=== PATIENT | female | born 1960 | race African-American/Black ===

== ENCOUNTER 2018-02-19 15:54 | Emergency (ER) | payer MEDICARE, MEDICAID ==
[~2018-02-19] VITALS: Ht 149.9 cm; Wt 77.1 kg
[~2018-02-19 15:54] MED LIST: ALBU2.5V14 NEB; ALBU8.5H6 IH; AMLO2.5T2 PO; ASPI-482 PO; BUDE10.2 IH; HYDR12.53 PO; LEVO75TA PO; LORA10CA PO; MELO7.5T29 PO; METO-239 PO; RANI300C PO
--- NOTE | 2018-02-19 16:16 | EKG ---
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
[2018-02-19 16:29] LABS: BASO % 0 % (0-3); EOS # 1.1 x10^3/uL (0.0-0.7); EOS % 13 % (0-3); HEMATOCRIT 37.9 % (36.0-47.0); HEMOGLOBIN 13.2 g/dL (12.0-15.5); LYMPH # 0.9 x10^3/uL (1.0-4.8); LYMPH % 11 % (24-48); MEAN CORPUSCULAR HEMOGLOBIN 31 pg (25-35); MEAN CORPUSCULAR HGB CONC 35 g/dL (31-37); MEAN CORPUSCULAR VOLUME 89 fL (79-100); MONO # 0.5 x10^3/uL (0.0-1.1); MONO % 6 % (0-9); NEUT # 5.9 x10^3uL (1.8-7.7); NEUT % 70 % (31-73); PLATELET COUNT 330 x10^3/uL (140-400); RED BLOOD COUNT 4.26 x10^6/uL (3.50-5.40); RED CELL DISTRIBUTION WIDTH 12.9 % (11.5-14.5); WHITE BLOOD COUNT 8.3 x10^3/uL (4.0-11.0)
[2018-02-19] MEDS ORDERED: CYCL5TAB PO (16:35)
[2018-02-19 16:39] LABS: CALCIUM 9.4 mg/dL (8.5-10.1); CREATININE 0.7 mg/dL (0.6-1.0); GFR 105.1; POTASSIUM 3.5 mmol/L (3.5-5.1)
[2018-02-19] MEDS ORDERED: FAMO-63 PO (16:40)
[2018-02-19] MEDS ORDERED: DIPH25CA58 PO (16:40)
--- NOTE | 2018-02-19 16:41 | PHYS DOC ---
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 Patient states that the chest pressure is intermittent. Patient rates her overall pain a 6 out of 10. Review of Systems Review of Systems Constitutional: Denies fever or chills [] Eyes: Denies change in visual acuity, redness, or eye pain [] HENT: Denies nasal congestion or sore throat [] Respiratory: Denies cough or shortness of breath [] Cardiovascular: Chest pressure GI: Denies abdominal pain, nausea, vomiting, bloody stools or diarrhea [] : Denies dysuria or hematuria [] Musculoskeletal: Denies back pain or joint pain [] Integument: Hives all over body except for face. Denies skin lesions [] Neurologic: Denies headache, focal weakness or sensory changes [] Endocrine: Denies polyuria or polydipsia [] All other systems were reviewed and found to be within normal limits, except as documented in this note. Current Medications Current Medications Current Medications Medications (Trade) Dose Ordered Sig/Alex Start Time Stop Time Status Last Admin Dose Admin Albuterol/ Ipratropium (Duoneb) 3 ml 1X ONCE 02/19/18 18:15 02/19/18 18:16 DC 02/19/18 18:10 3 ML Diphenhydramine HCl (Benadryl) 25 mg 1X ONCE 02/19/18 16:45 02/19/18 16:46 DC 02/19/18 16:54 25 MG Famotidine (Pepcid Vial) 20 mg 1X ONCE 02/19/18 16:45 02/19/18 16:46 DC 02/19/18 16:55 20 MG Prednisone (Prednisone) 50 mg 1X ONCE 02/19/18 16:45 02/19/18 16:45 DC Allergies Allergies Allergies Coded Allergies Type Severity Reaction Last Updated Verified prednisolone Allergy Mild RASH 09/13/13 Yes Physical Exam Physical Exam Constitutional: Well developed, well nourished, no acute distress, non-toxic appearance. [] HENT: Normocephalic, atraumatic, bilateral external ears normal, oropharynx moist, no oral exudates, nose normal. [] Eyes: PERRLA, EOMI, conjunctiva normal, no discharge. [] Neck: Normal range of motion, no tenderness, supple, no stridor. [] Cardiovascular:Left chest pain with palpation. Heart rate regular rhythm, no murmur [] Lungs & Thorax: Bilateral breath sounds clear to auscultation [] Abdomen: Bowel sounds normal, soft, no tenderness, no masses, no pulsatile masses. [] Skin: Warm, dry, erythema and hives all over body except for face. [] Back: No tenderness, no CVA tenderness. [] Extremities: No tenderness, no cyanosis, no clubbing, ROM intact, no edema. [] Neurologic: Alert and oriented X 3, normal motor function, normal sensory function, no focal deficits noted. [] Psychologic: Affect normal, judgement normal, mood normal. [] Current Patient Data Vital Signs Vital Signs Date Time Temp Pulse Resp B/P (MAP) Pulse Ox O2 Delivery O2 Flow Rate FiO2 02/19/18 18:12 99 Room Air 02/19/18 16:22 97.7 88 16 142/64 (90) 97.7 Lab Values Laboratory Tests Test 02/19/18 16:15 02/19/18 17:00 White Blood Count 8.3 x10^3/uL (4.0-11.0) Red Blood Count 4.26 x10^6/uL (3.50-5.40) Hemoglobin 13.2 g/dL (12.0-15.5) Hematocrit 37.9 % (36.0-47.0) Mean Corpuscular Volume 89 fL (79-100) Mean Corpuscular Hemoglobin 31 pg (25-35) Mean Corpuscular Hemoglobin Concent 35 g/dL (31-37) Red Cell Distribution Width 12.9 % (11.5-14.5) Platelet Count 330 x10^3/uL (140-400) Neutrophils (%) (Auto) 70 % (31-73) Lymphocytes (%) (Auto) 11 % (24-48) L Monocytes (%) (Auto) 6 % (0-9) Eosinophils (%) (Auto) 13 % (0-3) H Basophils (%) (Auto) 0 % (0-3) Neutrophils # (Auto) 5.9 x10^3uL (1.8-7.7) Lymphocytes # (Auto) 0.9 x10^3/uL (1.0-4.8) L Monocytes # (Auto) 0.5 x10^3/uL (0.0-1.1) Eosinophils # (Auto) 1.1 x10^3/uL (0.0-0.7) H Basophils # (Auto) 0.0 x10^3/uL (0.0-0.2) Sodium Level 138 mmol/L (136-145) Potassium Level 3.5 mmol/L (3.5-5.1) Chloride Level 101 mmol/L (98-107) Carbon Dioxide Level 26 mmol/L (21-32) Anion Gap 11 (6-14) Blood Urea Nitrogen 18 mg/dL (7-20) Creatinine 0.7 mg/dL (0.6-1.0) Estimated GFR (Cockcroft-Gault) 105.1 Glucose Level 99 mg/dL (70-99) Calcium Level 9.4 mg/dL (8.5-10.1) Troponin I Quantitative < 0.017 ng/mL (0.000-0.055) Urine Collection Type Unknown Urine Color Yellow Urine Clarity Cloudy Urine pH 6.5 Urine Specific [place] 1.010 Urine Protein Negative mg/dL (NEG-TRACE) Urine Glucose (UA) Negative mg/dL (NEG) Urine Ketones (Stick) Negative mg/dL (NEG) Urine Blood Trace (NEG) Urine Nitrite Negative (NEG) Urine Bilirubin Negative (NEG) Urine Urobilinogen Dipstick 0.2 mg/dL (0.2 mg/dL) Urine Leukocyte Esterase Negative (NEG) Urine RBC 11-20 /HPF (0-2) Urine WBC 0 /HPF (0-4) Urine Squamous Epithelial Cells Few /LPF Urine Bacteria 0 /HPF (0-FEW) Urine Mucus Slight /LPF Urine Opiates Screen Neg (NEG) Urine Methadone Screen Neg (NEG) Urine Barbiturates Neg (NEG) Urine Phencyclidine Screen Neg (NEG) Urine Amphetamine/Methamphetamine Neg (NEG) Urine Benzodiazepines Screen Neg (NEG) Urine Cocaine Screen Neg (NEG) Urine Cannabinoids Screen Neg (NEG) Urine Ethyl Alcohol Neg (NEG) Laboratory Tests 02/19/18 16:15 Laboratory Tests 02/19/18 16:15 EKG EKG Sinus tach, no STEMI and read by Dr. Farfan Interpretation Time: 1602 Radiology/Procedures Radiology/Procedures Chest xray Impressions: [facility] [address] [place] [address] IMAGING REPORT Signed PATIENT: MEGAN HILTON ACCOUNT: [id number] : 1960 LOCATION: ER AGE: 57 SEX: F EXAM STATUS: REG ER ORD. PHYSICIAN: YULIANA KENT APRN REASON: CHEST PRESSURE PROCEDURE: CHEST PA & LATERAL Chest radiograph 02/19/2018 4:56 PM INDICATION: Chest pressure and pain COMPARISON: September 17, 2015 TECHNIQUE: Frontal and lateral views of the chest are provided. FINDINGS: The cardiomediastinal silhouette is within normal limits. There are no pleural effusions. There is no pulmonary vascular congestion. There is no pneumothorax. The lungs are clear. No significant osseous abnormality is identified. IMPRESSION: No acute cardiopulmonary process. Electronically signed by: Salvador Romero MD (02/19/2018 5:12 PM) [facility] DICTATED and SIGNED BY: SALVADOR ROMERO MD DATE: 02/19/18 [id number] Course & Med Decision Making Course & Med Decision Making Patient is a 57 year old female who presents with getting steroid injections on Wednesday in her upper back and lower back for stenosis and last night began having redness and itching all over her body and states that she felt like her heart was beating fast and she has some chest pressure last night on the left side. Patient states that the chest pressure is intermittent. Patient rates her overall pain a 6 out of 10. Patient is alert and oriented. Patient's lungs are clear to auscultation all lobes. Patient speaks in full sentences and is not in any respiratory distress. Patient has red blotches all over her body except for her face and she states that she is very itchy. Patient states she does not feel like her throat is itching or swelling. Patient states that she does not have any itching of her tongue or swelling. When I evaluate the patient's mental she has no hives in her mouth or tongue is not swollen nor is her throat. Heart rate is regular and without murmur. Patient has no extremity edema or facial edema. Patient states she has no known drug allergies except now she is allergic to prednisone. Patient states that last time she had steroid injections was in 2014 and she had this same exact reaction. Patient states she had a go to the emergency room and get IV Benadryl and another medication of which she cannot remember. She denies any nausea or vomiting. Patient denies any headache or out of the usual numbness or tingling. Patient is stable and in no distress. Left chest pain with palpation. Patient will receive Pepcid IV and Benadryl IV in the ED. Patient will be sent home with scheduled Pepcid and did take Benadryl every 4-6 hours needed. EKG is sinus tachycardia at 102 and there is no STEMI and was read by Dr. Farfan. Chest x- ray showed no acute findings. Blood work is unremarkable. Patient states that she has a history of asthma for which she tried to tell us about and is supposed to be using albuterol when necessary. Patient states that she is feeling slightly short of air and was like a breathing treatment. Lungs are still clear to auscultation all lobes. Patient speaks in full sentences and is in no respiratory distress. Patient states after breathing treatment she is feeling better. Patient is discharged home in stable condition. [] Dragon Disclaimer Dragon Disclaimer This electronic medical record was generated, in whole or in part, using a voice recognition dictation system. Departure Departure Impression: Primary Impression: Hives Disposition: HOME, SELF-CARE Condition: STABLE Referrals: NON,STAFF (PCP) Patient Instructions: Hives Additional Instructions: Follow up with your primary care as soon as possible. If you begin having trouble breathing or wheezing or hive begin to form in your mouth come to the ED. Scripts Epinephrine (EPIPEN 2-ERLINDA) 0.3 Mg/0.3 Ml Auto.injct 0.3 MG IJ PRN PRN for ANAPHYLAXIS, #1 SYR Prov: YULIANA KENT RINKMAN 02/19/18 Diphenhydramine Hcl (BENADRYL) 25 Mg Capsule 25 MG PO Q4-6HRS PRN for ITCHING for 5 Days, CAP Prov: YULIANA KENT APRN 02/19/18 Famotidine (PEPCID) 20 Mg Tablet 20 MG PO BID for 5 Days, #10 TAB Prov: YULIANA KENT APRN 02/19/18 YULIANA KNET APRN Feb 19, 2018 16:41
[2018-02-19] MEDS ORDERED: FAMOTIDINE 20 MG/2 ML VIAL IVP ONE (16:45)
[2018-02-19] MEDS ORDERED: predniSONE 10 MG TABLET PO ONE (16:45)
[2018-02-19] MEDS ORDERED: diphenhydrAMINE 50 MG/ML VIAL IVP ONE (16:45)
[2018-02-19 17:11] LABS: BILIRUBIN,URINE NEGATIVE (NEG); CLARITY,URINE CLOUDY; COLOR,URINE YELLOW; NITRITE,URINE NEGATIVE (NEG); PH,URINE 6.5; PROTEIN,URINE NEGATIVE (NEG-TRACE); UROBILINOGEN,URINE 0.2 mg/dL (0.2 mg/dL)
--- NOTE | 2018-02-19 17:15 | RAD ---
Chest radiograph 02/19/2018 4:56 PM INDICATION: Chest pressure and pain COMPARISON: September 17, 2015 TECHNIQUE: Frontal and lateral views of the chest are provided. FINDINGS: The cardiomediastinal silhouette is within normal limits. There are no pleural effusions. There is no pulmonary vascular congestion. There is no pneumothorax. The lungs are clear. No significant osseous abnormality is identified. IMPRESSION: No acute cardiopulmonary process. Electronically signed by: Alysia Reese MD (02/19/2018 5:12 PM) [facility]
[2018-02-19 17:18] LABS: BARBITURATES NEG (NEG); BENZODIAZEPINES NEG (NEG); CANNABINOIDS NEG (NEG); COCAINE NEG (NEG); METHADONE NEG (NEG); OPIATES NEG (NEG); PHENCYCLIDINE NEG (NEG)
[2018-02-19 17:34] LABS: BACTERIA,URINE 0 /HPF (0-FEW); SQUAMOUS EPITHELIAL CELL,UR FEW /LPF; WBC,URINE 0 /HPF (0-4)
[2018-02-19 17:35] LABS: AMPHETAMINE/METHAMPHETAMINE NEG (NEG)
[2018-02-19] MEDS ORDERED: EPIPEN 2-P0.3 MG/0.3 IJ (17:58)
[2018-02-19] MEDS ORDERED: IPRATRPIUM/ALBUTEROL 0.5/2.5MG 3 ML NEBU. NEB ONE (18:15)
[2018-02-19 18:30] VITALS: BP 144/64
== END 2018-02-19 18:33 | disposition home or self-care (01) ==
LOC: ER 15:54
DX: L50.9 Urticaria, unspecified (principal); M54.5 Low back pain; M54.6 Pain in thoracic spine; I10 Essential (primary) hypertension; E03.9 Hypothyroidism, unspecified; R07.89 Other chest pain; Z88.5 Allergy status to narcotic agent
CPT/HCPCS: 36415; 71046; 80048; 80307; 81001; 84484; 85025; 93005; 94640; 96374; 96375; 99285; J1200; J7620; S0028; G0479

== ENCOUNTER → 2018-06-28 | Outpatient (CLI) | payer MEDICARE, MEDICAID ==
[~2018-06-28] MED LIST changes: +CYCL5TAB PO; +DIPH25CA58 PO; +EPIPEN 2-P0.3 MG/0.3 IJ; +FAMO-63 PO; -HYDR12.53 PO; +HYDR12.575 PO
[2018-06-28 11:15] LABS: BASO % 1 % (0-3); EOS # 0.5 x10^3/uL (0.0-0.7); EOS % 11 % (0-3); HEMATOCRIT 37.3 % (36.0-47.0); HEMOGLOBIN 12.2 g/dL (12.0-15.5); LYMPH # 1.5 x10^3/uL (1.0-4.8); LYMPH % 34 % (24-48); MEAN CORPUSCULAR HEMOGLOBIN 29 pg (25-35); MEAN CORPUSCULAR HGB CONC 33 g/dL (31-37); MEAN CORPUSCULAR VOLUME 89 fL (79-100); MONO # 0.5 x10^3/uL (0.0-1.1); MONO % 10 % (0-9); NEUT % 45 % (31-73); PLATELET COUNT 268 x10^3/uL (140-400); RED BLOOD COUNT 4.18 x10^6/uL (3.50-5.40); RED CELL DISTRIBUTION WIDTH 13.2 % (11.5-14.5); WHITE BLOOD COUNT 4.6 x10^3/uL (4.0-11.0)
[2018-06-28 11:35] LABS: ALBUMIN 3.4 g/dL (3.4-5.0); ALBUMIN/GLOBULIN RATIO 0.8 (1.0-1.7); CALCIUM 8.9 mg/dL (8.5-10.1); CREATININE 0.7 mg/dL (0.6-1.0); GFR 105.1; POTASSIUM 3.7 mmol/L (3.5-5.1); TOTAL BILIRUBIN 0.3 mg/dL (0.2-1.0); TOTAL PROTEIN 7.5 g/dL (6.4-8.2)
[2018-06-28 11:37] LABS: CHOLESTEROL/HDL RATIO 4.1
== END | disposition home or self-care (01) ==
LOC: LAB 10:43
PROVIDERS: ATTEND Internal Medicine Cardiovascular Disease
DX: I10 Essential (primary) hypertension (principal); R06.00 Dyspnea, unspecified
CPT/HCPCS: 36415; 80053; 80061; 83721; 83880; 84443; 85025

== ENCOUNTER → 2018-07-01 | Outpatient (CLI) | payer MEDICARE, MEDICAID ==
--- NOTE | 2018-07-01 13:19 | RESP ---
DATE OF SERVICE: 07/01/2018 ATTENDING PHYSICIAN: Dr. Bergeron. The patient's FVC was 2.50, which is 106% predicted; FEV1 2.17, which is 116% predicted. The FEV1/FVC ratio was normal. There were no bronchodilators given. Lung volumes showed a normal total lung capacity of 89% predicted and residual volume was 72% predicted. Diffusion capacity was normal at 106% predicted. IMPRESSION: 1. Normal PFTs with no evidence of any obstructive or restrictive lung disease. 2. No bronchodilators given. YAEL GLASER MD DR: HUAN/kathleen JOB#: [id number] / [id number]
== END | disposition home or self-care (01) ==
LOC: PF 09:19
PROVIDERS: ATTEND Internal Medicine Cardiovascular Disease
DX: R06.00 Dyspnea, unspecified (principal)
CPT/HCPCS: 94010; 94729

== ENCOUNTER → 2019-01-04 | Outpatient (CLI) | payer MEDICARE, MEDICAID ==
[2019-01-04 10:55] LABS: ALBUMIN 3.4 g/dL (3.4-5.0); ALBUMIN/GLOBULIN RATIO 0.8 (1.0-1.7); CALCIUM 8.8 mg/dL (8.5-10.1); CREATININE 0.8 mg/dL (0.6-1.0); GFR 89.8; POTASSIUM 3.7 mmol/L (3.5-5.1); TOTAL BILIRUBIN 0.4 mg/dL (0.2-1.0); TOTAL PROTEIN 7.6 g/dL (6.4-8.2)
[2019-01-04 11:04] LABS: CHOLESTEROL/HDL RATIO 2.7
== END | disposition home or self-care (01) ==
LOC: LAB 10:09
PROVIDERS: ATTEND Internal Medicine Cardiovascular Disease
DX: E78.5 Hyperlipidemia, unspecified (principal)
CPT/HCPCS: 36415; 80053; 80061; 83721

== ENCOUNTER → 2019-03-29 | Outpatient (CLI) | payer MEDICARE, MEDICAID ==
[~2019-03-29] MED LIST changes: +IOHEXOL 350 MG/ML 100 ML VIAL. IV ONE
--- NOTE | 2019-03-29 09:59 | RAD ---
EXAM: CT ANGIOGRAPHY OF THE CHEST WITH AND WITHOUT CONTRAST. HISTORY: Chest pain. TECHNIQUE: Computed tomographic angiography of the chest was performed before and after the intravenous administration of iodinated contrast. 3-D maximum intensity projections were also performed. COMPARISON: 04/19/2015. FINDINGS: Images of the upper abdomen reveal cholelithiasis. There are calcified granulomas in the liver and spleen. There is a small hiatal hernia. Bone windows reveal no suspicious lesions. No pulmonary emboli are identified. There is no aortic dissection or aneurysm. There are no pathologically enlarged mediastinal or axillary lymph nodes. There is no pleural or pericardial effusion. The heart is not enlarged. There are calcified granulomas in the right lower lobe. There are no acute infiltrates. IMPRESSION: 1. No pulmonary embolism. 2. Cholelithiasis. 3. Small hiatal hernia. *One or more of the following individualized dose reduction techniques were utilized for this examination: 1. Automated exposure control. 2. Adjustment of the mA and/or kV according to patient size. 3. Use of iterative reconstruction technique. Electronically signed by: Onesimo Arnold MD (03/29/2019 9:56 AM) [facility]
== END | disposition home or self-care (01) ==
LOC: CT 07:32
PROVIDERS: ATTEND Internal Medicine Critical Care Medicine
DX: J84.10 Pulmonary fibrosis, unspecified (principal); K80.20 Calculus of gallbladder without cholecystitis without obstruction; K44.9 Diaphragmatic hernia without obstruction or gangrene; D73.89 Other diseases of spleen; K76.89 Other specified diseases of liver
CPT/HCPCS: 71275; Q9967

== ENCOUNTER 2019-04-05 09:56 | Emergency (ER) | payer MEDICARE, MEDICAID ==
[~2019-04-05] VITALS: Ht 149.9 cm; Wt 76.2 kg
[~2019-04-05 09:56] MED LIST changes: -IOHEXOL 350 MG/ML 100 ML VIAL. IV ONE
[2019-04-05 10:12] VITALS: BP 156/82
--- NOTE | 2019-04-05 10:30 | PHYS DOC ---
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 Patient states she had a CT angiogram of her chest done here a week ago because her doctor suspected pneumonia but the CT did not reveal any pneumonia. Patient states that her back pain increases with movement, coughing, and palpation. She states that both of her arms tingle at times. She currently rates the pain a 10 out of 10 on the pain scale she has tried taking her Flexeril and meloxicam with no relief of her symptoms. The patient denies any recent injury or trauma. She denies any fever, cough, chest pain, palpitations, or shortness of breath. All other ROS is neg unless otherwise noted in HPI. Review of Systems Review of Systems See Above Allergies Allergies Allergies Coded Allergies Type Severity Reaction Last Updated Verified methylprednisolone Allergy Intermediate 04/05/19 Yes triamcinolone Allergy Intermediate 04/05/19 Yes prednisolone Allergy Mild RASH 09/13/13 Yes Uncoded Allergies Type Severity Reaction Last Updated Verified "all steroids" Allergy Unknown 04/05/19 Physical Exam Physical Exam See Above Constitutional: Well developed, well nourished, no acute distress, non-toxic appearance. [] HENT: Normocephalic, atraumatic, bilateral external ears normal, oropharynx moist, no oral exudates, nose normal. [] Eyes: PERRLA, EOMI, conjunctiva normal, no discharge. [] Neck: Normal range of motion, no stridor. [] Cardiovascular:Heart rate regular rhythm, no murmur [] Lungs & Thorax: Bilateral breath sounds clear to auscultation [] Skin: Warm, dry, no erythema, no rash. [] Back: diffuse non-specific paraspinal and bony thoracic, cervical, and lumbar TTP Extremities: No cyanosis, no clubbing, ROM intact, no edema. [] Neurologic: Alert and oriented X 3, no focal deficits noted. [] Psychologic: Affect normal, judgement normal, mood normal. [] Current Patient Data Vital Signs Vital Signs Date Time Temp Pulse Resp B/P (MAP) Pulse Ox O2 Delivery O2 Flow Rate FiO2 04/05/19 10:12 98.1 86 18 156/82 (106) 97 Room Air 98.1 EKG EKG [] Radiology/Procedures Radiology/Procedures [] Course & Med Decision Making Course & Med Decision Making Pertinent Labs and Imaging studies reviewed. (See chart for details) Advised the patient that chronic back pain would be better managed by her primary care provider who can order testing such as an MRI. We will prescribe patient Robaxin. Patient instructed to stop taking Flexeril while taking Robaxin. Return to the ER if symptoms worsen. She verbalized an understanding of home care, medications, follow-up, and return to ED instructions and was in agreement with the plan of care. [] Dragon Disclaimer Dragon Disclaimer This electronic medical record was generated, in whole or in part, using a voice recognition dictation system. Departure Departure Impression: Primary Impression: Chronic back pain Disposition: HOME, SELF-CARE Condition: STABLE Referrals: DARIELA MONK JR, MD (PCP) Patient Instructions: Back Pain, Adult, [id number] Additional Instructions: Fill the prescriptions and use as directed, stop taking Flexeril. Activity as tolerated. Follow-up with your primary care doctor in the next 1-2 days. Return to the emergency room if your symptoms worsen. Scripts Methocarbamol (ROBAXIN-750) 750 Mg Tablet 2 TAB PO TID PRN for PAIN for 7 Days, #42 TAB 0 Refills Prov: MICKY HENDRICKS APRN 04/05/19 Problem Qualifiers Primary Impression: Chronic back pain Back pain location: back pain in unspecified location Back pain laterality: unspecified Qualified Codes: M54.9 - Dorsalgia, unspecified; G89.29 - Other chronic pain MICKY HENDRICKS [employer]INATING OPERATOR Apr 05, 2019 10:30
[2019-04-05] MEDS ORDERED: METH-38 PO (10:58)
== END 2019-04-05 11:14 | disposition home or self-care (01) ==
LOC: ER 09:56
DX: G89.29 Other chronic pain (principal); M54.6 Pain in thoracic spine; M54.5 Low back pain; M54.2 Cervicalgia; I10 Essential (primary) hypertension; E03.9 Hypothyroidism, unspecified; M47.814 Spondylosis without myelopathy or radiculopathy, thoracic region; Z88.5 Allergy status to narcotic agent; Z88.8 Allergy status to other drugs, medicaments and biological substances
CPT/HCPCS: 99283

== ENCOUNTER → 2020-03-29 | Outpatient (CLI) | payer MEDICARE, MEDICAID ==
[~2020-03-29] MED LIST changes: -LEVO75TA PO; +LEVO75TA90 PO; +METH-38 PO
[2020-03-29 08:37] LABS: ALBUMIN 3.3 g/dL (3.4-5.0); ALBUMIN/GLOBULIN RATIO 0.8 (1.0-1.7); CHOLESTEROL/HDL RATIO 2.5; CREATININE 0.9 mg/dL (0.6-1.0); GFR 78.1; POTASSIUM 3.4 mmol/L (3.5-5.1); TOTAL BILIRUBIN 0.7 mg/dL (0.2-1.0); TOTAL PROTEIN 7.3 g/dL (6.4-8.2)
--- NOTE | 2020-03-29 08:54 | CARD ---
MR#: [id number] Date of Study: 03/29/2020 Ordering Physician: TAO ROBERSON, Referring Physician: TAO ROBERSON, Tech: Marco Antonio Castillo [facility] APPROVED REPORT EXAM: Two-dimensional and M-mode echocardiogram with Doppler and color Doppler. Other Information Quality : GoodHR: 79bpm Rhythm : NSR INDICATION Chest Pain 2D DIMENSIONS Left Atrium(2D)2.8 (1.6-4.0cm)IVSd1.2 (0.7-1.1cm) Aortic Root(2D)3.2 (2.0-3.7cm)LVDd3.6 (3.9-5.9cm) PWd1.1 (0.7-1.1cm)LA Tuasib30 (18-58mL) LVDs2.9 (2.5-4.0cm)FS (%) 20.0 % SV23.5 mlLVEF(%)41.8 (>50%) Aortic Valve AoV Peak Carl.134.6cm/Sondra Peak GR.7.2mmHg LVOT Peak Carl.90.0cm/s Mitral Valve MV E Fsqdaabw82.9cm/sMV DECEL [id number] MV A Ondtevih39.8cm/sE/A Ratio0.8 MV A [id number] Pulmonary Valve PV Peak Gslaesea86.3cm/s Tricuspid Valve TR P. Jndjfgef479fd/sTR Peak Gr.30mmHg Pulmonary Vein S1 Xlreytwd55.5cm/sD2 Jtxytwyo71.4cm/s PVa [id number] LEFT VENTRICLE The left ventricle is normal size. There is normal left ventricular wall thickness. Left ventricular systolic function is normal. The ejection fraction is 60%. No regional wall motion abnormalities note d. Transmitral Doppler flow pattern is Grade I-abnormal relaxation pattern. No left ventricle thrombu s noted on this study. There is no ventricular septal defect visualized. RIGHT VENTRICLE The right ventricle is normal size. There is normal right ventricular wall thickness. The right ventr icular systolic function is normal. ATRIA The left atrium size is normal. The right atrium size is normal. The interatrial septum is intact wit h no evidence for an atrial septal defect or patent foramen ovale as noted on 2-D or Doppler imaging. AORTIC VALVE The aortic valve is normal in structure and function. No aortic regurgitation is present. There is no aortic valvular stenosis. There is no aortic valvular vegetation. MITRAL VALVE The mitral valve is normal in structure and function. There is no evidence of mitral valve prolapse. There is no mitral valve stenosis. Doppler and Color-flow revealed mild mitral regurgitation. TRICUSPID VALVE The tricuspid valve is normal in structure and function. Doppler and Color Flow revealed mild tricusp id regurgitation with PAP of 37 mmHg. There is no tricuspid valve prolapse or vegetation. There is no tricuspid valve stenosis. PULMONIC VALVE The pulmonary valve is normal in structure and function. There is no pulmonic valvular regurgitation. There is no pulmonic valvular stenosis. GREAT VESSELS The aortic root is normal in size. The ascending aorta is normal in size. The pulmonary artery is nor mal. The IVC is normal in size and collapses >50% with inspiration. PERICARDIAL EFFUSION There is no pleural effusion. There is no evidence of significant pericardial effusion. Critical Notification Critical Value: No <Conclusion> Left ventricular systolic function is normal. The ejection fraction is 60%. No regional wall motion abnormalities noted. Transmitral Doppler flow pattern is Grade I-abnormal relaxation pattern. Mild mitral regurgitation. Mild tricuspid regurgitation with PAP of 37 mmHg. There is no evidence of significant pericardial effusion. Signed by : Kota Gregorio, Electronically Approved : 03/29/2020 08:53:31
== END ==
LOC: ECHO 07:37
PROVIDERS: ATTEND Internal Medicine Cardiovascular Disease
DX: I08.1 Rheumatic disorders of both mitral and tricuspid valves (principal); E78.5 Hyperlipidemia, unspecified
CPT/HCPCS: 36415; 80053; 80061; 83721; 93306

== ENCOUNTER → 2020-09-20 | Outpatient (CLI) | payer MEDICARE, MEDICAID ==
[2020-09-20 10:23] LABS: ALBUMIN 3.6 g/dL (3.4-5.0); ALBUMIN/GLOBULIN RATIO 0.9 (1.0-1.7); CALCIUM 8.5 mg/dL (8.5-10.1); CREATININE 0.8 mg/dL (0.6-1.0); GFR 89.5; POTASSIUM 3.8 mmol/L (3.5-5.1); TOTAL BILIRUBIN 0.4 mg/dL (0.2-1.0); TOTAL PROTEIN 7.6 g/dL (6.4-8.2)
[2020-09-20 10:29] LABS: CHOLESTEROL/HDL RATIO 3.4
== END ==
LOC: LAB 09:36
PROVIDERS: ATTEND Internal Medicine Cardiovascular Disease
DX: E78.5 Hyperlipidemia, unspecified (principal)
CPT/HCPCS: 36415; 80053; 80061

== ENCOUNTER → 2021-03-28 | Outpatient (CLI) | payer MEDICARE, MEDICAID ==
[2021-03-28 12:10] LABS: ALBUMIN 3.4 g/dL (3.4-5.0); ALBUMIN/GLOBULIN RATIO 0.8 (1.0-1.7); CALCIUM 8.5 mg/dL (8.5-10.1); CHOLESTEROL/HDL RATIO 3.5; CREATININE 0.7 mg/dL (0.6-1.0); POTASSIUM 3.7 mmol/L (3.5-5.1); TOTAL BILIRUBIN 0.3 mg/dL (0.2-1.0); TOTAL PROTEIN 7.7 g/dL (6.4-8.2)
== END ==
LOC: LAB 11:19
PROVIDERS: ATTEND Internal Medicine Cardiovascular Disease
DX: I10 Essential (primary) hypertension (principal)
CPT/HCPCS: 36415; 80053; 80061; 83721

== ENCOUNTER → 2021-05-16 | Outpatient (CLI) | payer MEDICARE, MEDICAID ==
[2021-05-16 12:49] LABS: ALBUMIN 3.4 g/dL (3.4-5.0); ALBUMIN/GLOBULIN RATIO 0.8 (1.0-1.7); CALCIUM 8.4 mg/dL (8.5-10.1); CREATININE 0.7 mg/dL (0.6-1.0); POTASSIUM 3.8 mmol/L (3.5-5.1); TOTAL BILIRUBIN 0.4 mg/dL (0.2-1.0); TOTAL PROTEIN 7.8 g/dL (6.4-8.2)
[2021-05-16 12:55] LABS: CHOLESTEROL/HDL RATIO 2.2
== END ==
LOC: LAB 12:02
PROVIDERS: ATTEND Internal Medicine Cardiovascular Disease
DX: E78.5 Hyperlipidemia, unspecified (principal)
CPT/HCPCS: 36415; 80053; 80061